=== PATIENT | female | born 1960 | race Two or more races ===

== ENCOUNTER → 2017-03-28 | Outpatient (CLI) | payer MEDICAID | LOC: FIMAGING 14:23 | PROVIDERS: ATTEND Family Medicine | DX: M54.5 Low back pain (principal); G89.29 Other chronic pain; M54.2 Cervicalgia ==

== ENCOUNTER → 2017-06-08 | Outpatient (CLI) | payer MEDICAID | LOC: CIMAGING 10:13 | PROVIDERS: ATTEND Family Medicine | DX: Z12.31 Encounter for screening mammogram for malignant neoplasm of breast (principal) | CPT/HCPCS: G0202 ==

== ENCOUNTER → 2017-12-27 | Outpatient (CLI) | payer MEDICAID | LOC: CIMAGING 11:22 | PROVIDERS: ATTEND Family Medicine | DX: R51 Headache (principal); R55 Syncope and collapse; W19.XXXD Unspecified fall, subsequent encounter | CPT/HCPCS: 70450-PO ==

== ENCOUNTER → 2018-06-11 | Outpatient (CLI) | payer MEDICAID | LOC: CIMAGING 14:08 | PROVIDERS: ATTEND Family Medicine | DX: Z12.31 Encounter for screening mammogram for malignant neoplasm of breast (principal) ==